=== PATIENT | female | born 1995 | race Two or more races ===

== ENCOUNTER 2022-09-06 18:00 | Emergency (ER) | payer OTHER ==
[~2022-09-06] VITALS: Ht 162.6 cm; Wt 75.3 kg
== END 2022-09-06 22:46 | disposition home or self-care (01) ==
LOC: ER 18:00
DX: O20.9 Hemorrhage in early pregnancy, unspecified (principal); O03.9 Complete or unspecified spontaneous abortion without complication; Z88.0 Allergy status to penicillin

== ENCOUNTER 2024-05-08 17:18 | Outpatient (CLI) | payer OTHER ==
[~2024-05-08] VITALS: Ht 162.6 cm; Wt 76.2 kg
[2024-05-08 16:14] VITALS: BP 119/76
[~2024-05-08 17:18] MED LIST: COLACE100 MG PO; MACROBID 100 M100 MG PO
[2024-05-08] MEDS ORDERED: FAMOTIDINE/PF 20 MG/2 ML VIAL ONE (17:21)
[2024-05-08] MEDS ORDERED: RINGERS SOLUTION,LACTATED 1,000 ML IV SCH (18:00)
[2024-05-08] MEDS ORDERED: FAMOTIDINE/PF 20 MG/2 ML VIAL IV PUSH ONE (18:00)
[2024-05-08] MEDS ORDERED: PRENATAL TABLE1 EAC1 PO (18:17)
[2024-05-08 18:27] LABS: HEMOGLOBIN 10.5 g/dL (12.0-15.00); MEAN CELL VOLUME 86.8 fL (80.00-100.00); MEAN CORPUSCULAR HEMOGLOBIN 31.3 pg (27.00-32.0); MEAN CORPUSCULAR HGB CONC 36.1 g/dl (32.0-36.0); PLATELET COUNT 318 K/uL (150-450); RED BLOOD COUNT 3.34 M/uL (4.00-6.00); RED CELL DISTRIBUTION WIDTH 13.9 % (11.5-14.5); URINE APPEARANCE Clear; URINE BILIRRUBIN Negative (NEGATIVE); URINE BLOOD Negative; URINE COLOR Yellow; URINE GLUCOSE Negative (NEGATIVE); URINE KETONE Trace (NEGATIVE); URINE LEUKOCYTE Moderate; URINE NITRATE Negative; URINE PROTEIN Trace (NEGATIVE); URINE UROBILINOGEN 0.2 E.U./dl
[2024-05-08 18:31] LABS: URINE BACTERIA 4462.8 uL (0.0-1933); URINE EPITHELIAL CELLS 25.2 uL (0.0-38.8); URINE RBC 23.5 uL (0.0-20.8); URINE WBC 30.9 uL (0.0-23.2)
[2024-05-08 18:48] LABS: INR 0.96; PROTHROMBIN TIME 10.5 SECONDS (9.0-11.5)
[2024-05-08 18:53] LABS: URINE CAST 0.76 uL (0.0-1.40)
[2024-05-08 18:55] LABS: URINE CRYSTALS FEW /HPF; URINE MUCUS SCANT
[2024-05-08 18:58] LABS: ALBUMIN 2.8 gm/dL (3.4-5.0); BILIRUBIN TOTAL 0.28 mg/dL (0.3-1.2); CALCIUM 8.8 mg/dL (8.5-10.1); CREATININE SERUM 0.56 mg/dL (0.55-1.02); GFR 129.86; GLOBULINA 3.4 G/DL (2.4-3.5); POTASSIUM 3.38 mEq/L (3.5-5.1); TOTAL PROTEIN 6.2 gm/dL (6.4-8.2)
[2024-05-08 19:03] VITALS: BP 121/80
[2024-05-08 23:28] VITALS: BP 109/72
[2024-05-09 04:32] VITALS: BP 90/61
[2024-05-09 06:37] VITALS: BP 103/67; O2SAT 100
[2024-05-09 09:38] VITALS: BP 103/67
== END 2024-05-09 10:38 | disposition home or self-care (01) ==
LOC: OBS/DEL 17:18
PROVIDERS: ATTEND Specialist
DX: O99.613 Diseases of the digestive system complicating pregnancy, third trimester (principal); Z3A.32 32 weeks gestation of pregnancy

== ENCOUNTER 2024-06-22 13:28 | Inpatient (IN) | payer OTHER ==
[~2024-06-22] VITALS: Ht 162.6 cm; Wt 76.2 kg
[2024-06-22 11:50] VITALS: BP 140/91
[~2024-06-22 13:28] MED LIST changes: +PRENATAL TABLE1 EAC1 PO
[2024-06-22] MEDS ORDERED: SODIUM CHLORIDE 0.45 % 1,000 ML IV SCH (14:00)
[2024-06-22 14:57] LABS: URINE APPEARANCE Clear; URINE BILIRRUBIN Negative (NEGATIVE); URINE BLOOD Negative; URINE COLOR Yellow; URINE GLUCOSE Negative (NEGATIVE); URINE KETONE Negative (NEGATIVE); URINE LEUKOCYTE Moderate; URINE NITRATE Negative; URINE PROTEIN Negative (NEGATIVE); URINE UROBILINOGEN 0.2 E.U./dl
[2024-06-22 15:01] LABS: URINE BACTERIA 2445.5 uL (0.0-1933); URINE EPITHELIAL CELLS 20.5 uL (0.0-38.8); URINE WBC 7.7 uL (0.0-23.2)
[2024-06-22 15:03] LABS: HEMATOCRIT 34.4 % (36.0-45.00); HEMOGLOBIN 11.8 g/dL (12.0-15.00); MEAN CELL VOLUME 87.4 fL (80.00-100.00); MEAN CORPUSCULAR HEMOGLOBIN 29.9 pg (27.00-32.0); MEAN CORPUSCULAR HGB CONC 34.3 g/dl (32.0-36.0); PLATELET COUNT 341 K/uL (150-450); RED BLOOD COUNT 3.93 M/uL (4.00-6.00); RED CELL DISTRIBUTION WIDTH 13.9 % (11.5-14.5)
[2024-06-22 15:04] LABS: URINE CAST 1.22 uL (0.0-1.40)
[2024-06-22 15:22] LABS: INR 0.94; PARTIAL THROMBOPLASTIN TIME 26.9 SECONDS (22.0-34.0); PROTHROMBIN TIME 10.3 SECONDS (9.0-11.5)
[2024-06-22 15:25] LABS: ALBUMIN 3.2 gm/dL (3.4-5.0); BILIRUBIN TOTAL 0.38 mg/dL (0.3-1.2); CALCIUM 9.2 mg/dL (8.5-10.1); CREATININE SERUM 0.69 mg/dL (0.55-1.02); GFR 102.06; GLOBULINA 3.9 G/DL (2.4-3.5); POTASSIUM 3.35 mEq/L (3.5-5.1); TOTAL PROTEIN 7.1 gm/dL (6.4-8.2)
[2024-06-22 15:33] VITALS: BP 136/81
[2024-06-22 20:00] VITALS: BP 123/57
[2024-06-22 23:17] VITALS: BP 148/84
[2024-06-22 23:18] VITALS: BP 142/73
[2024-06-23 00:15] VITALS: BP 144/78
[2024-06-23] MEDS ORDERED: FAMOTIDINE/PF 20 MG/2 ML VIAL IV PUSH ONE (00:45)
[2024-06-23] MEDS ORDERED: CITRIC ACID/SODIUM CITRATE 30 ML BLIST.PACK PO ONE (00:45)
[2024-06-23] MEDS ORDERED: ACETAMINOPHEN 500 MG GEL..CAP PO PRN (00:45)
[2024-06-23 03:38] VITALS: BP 129/72
[2024-06-23 07:14] VITALS: BP 127/65
[2024-06-23 09:11] LABS: HEMATOCRIT 31.1 % (36.0-45.00); HEMOGLOBIN 10.6 g/dL (12.0-15.00); MEAN CELL VOLUME 86.2 fL (80.00-100.00); MEAN CORPUSCULAR HEMOGLOBIN 29.3 pg (27.00-32.0); PLATELET COUNT 374 K/uL (150-450); RED BLOOD COUNT 3.61 M/uL (4.00-6.00)
[2024-06-23 09:17] LABS: AMYLASE 52 U/L (25-115); LIPASE 32 U/L (13-75)
[2024-06-23 11:27] VITALS: BP 124/77
[2024-06-23] MEDS ORDERED: CEFAZOLIN SODIUM 1,000 MG in DEXTROSE 5 % IN WATER 50 ML IV SCH (13:00)
[2024-06-23 15:34] VITALS: BP 125/60; O2SAT 100
[2024-06-23 19:18] VITALS: BP 129/77
[2024-06-24] VITALS (7 sets, daily range): BP systolic 115–132; BP diastolic 71–84
[2024-06-25] VITALS (11 sets, daily range): BP systolic 126–155; BP diastolic 70–93; O2SAT 99
[2024-06-25] MEDS ORDERED: OXYTOCIN 500 ML IV SCH (07:35)
[2024-06-25] MEDS ORDERED: MEPERIDINE HCL/PF 50 MG/ML VIAL IV ONE (12:30)
[2024-06-25] MEDS ORDERED: PROMETHAZINE HCL 25 MG/ML AMPUL IV ONE (12:30)
[2024-06-25] MEDS ORDERED: OXYTOCIN 20 UNITS/1000ML RL PIGGYBAG IV ONE (15:15)
[2024-06-25] MEDS ORDERED: ERYTHROMYCIN BASE OPHT 1GM EACH TUBE OP ONE (15:15)
[2024-06-25] MEDS ORDERED: OxyCODONE HCL/APAP UD (PERCOCET) PO PRN (15:15)
[2024-06-25] MEDS ORDERED: LIDOCAINE HCL 1% 10ML VIAL IJ ONE (15:15)
[2024-06-25] MEDS ORDERED: CHLORHEXIDINE GLUCONATE 120 ML BOTTLE TOP ONE (15:15)
[2024-06-25] MEDS ORDERED: HYDROCORTISONE 2.5% 30 GM TUBE RECTAL SCH (17:00)
[2024-06-25] MEDS ORDERED: BENZOCAINE/MENTHOL 90 ML BOTTLE TOP SCH (17:00)
[2024-06-26] VITALS: BP 127/85
[2024-06-26 00:36] LABS: HEMATOCRIT 32.8 % (36.0-45.00); HEMOGLOBIN 11.4 g/dL (12.0-15.00); MEAN CORPUSCULAR HEMOGLOBIN 29.4 pg (27.00-32.0); MEAN CORPUSCULAR HGB CONC 34.6 g/dl (32.0-36.0); PLATELET COUNT 362 K/uL (150-450); RED BLOOD COUNT 3.86 M/uL (4.00-6.00); RED CELL DISTRIBUTION WIDTH 14.1 % (11.5-14.5)
[2024-06-26 08:24] VITALS: BP 127/81
[2024-06-26 16:55] VITALS: BP 124/79
[2024-06-27] VITALS: BP 117/75
[2024-06-27 07:44] VITALS: BP 133/85
== END 2024-06-27 14:35 | disposition home or self-care (01) | DRG 807 ==
LOC: OBS/DEL 13:28 → LDR 06-23 12:20 → OB/GYN 06-25 15:14
PROVIDERS: Obstetrics & Gynecology; ADMIT Specialist; ATTEND Specialist
PROC: 4A1HXCZ Monitoring of Products of Conception, Cardiac Rate, External Approach (ICD-10-PCS; 2024-06-23)
PROC: BW40ZZZ Ultrasonography of Abdomen (ICD-10-PCS; 2024-06-23)
PROC: 10E0XZZ Delivery of Products of Conception, External Approach (ICD-10-PCS; principal; 2024-06-25)
PROC: 0HQ9XZZ Repair Perineum Skin, External Approach (ICD-10-PCS; 2024-06-25)
DX: O70.0 First degree perineal laceration during delivery (principal); O75.89 Other specified complications of labor and delivery; N20.0 Calculus of kidney; Z37.0 Single live birth; Z3A.38 38 weeks gestation of pregnancy; Z20.822 Contact with and (suspected) exposure to COVID-19